=== PATIENT | female | born 1990 | race Caucasian/White ===

== ENCOUNTER 2021-08-19 17:58 | Emergency (ER) | payer BC, SELFPAY ==
[2021-08-19 18:15] VITALS: BP 148/87; PULSE 92; RESP 16; TEMP 36.8; O2SAT 100
--- NOTE | 2021-08-19 18:53 | ED.GENADULT ---
HPI - General Adult General Chief complaint: Skin/Abscess/Foreign Body Stated complaint: lac on left forearm/glass in right foot Source: patient Mode of arrival: ambulatory Limitations: no limitations History of Present Illness HPI narrative: Patient presents for evaluation of laceration to left forearm and puncture wound to right foot. She was attempting to close a door in her partner's face this morning around 0200. In the process of doing so her left arm went through the glass on the door. She was intoxicated at the time. And stepped on glass on the floor with her right foot. She sustained a puncture wound to the plantar aspect of the ball of the right foot. She feels like there is a piece of glass underneath her skin. She attempted to remove it with tweezers unsuccessfully. She states bleeding is controlled to left forearm. While she was intoxicated, her partner who is here in company, remembers the event. No other injuries were sustained. She denies pain in left forearm unless she touches the laceration site. She does have some sharp pain in right foot while ambulating. She is not diabetic. Last tetanus was approximately 1 year ago. No additional complaints or concerns. Related Data Home Medications Medication Instructions Recorded Confirmed No Home Medications 08/19/21 08/19/21 Allergies Allergy/AdvReac Type Severity Reaction Status Date / Time No Known Allergies Allergy Verified 08/19/21 18:43 Review of Systems Review of Systems: CONSTITUTIONAL: Denies fever, chills, or sweats. EYES: Denies visual changes, redness, or discharge. ENT: Denies rhinorrhea, congestion, sore throat, or otalgia. CARDIOVASCULAR: Denies chest pain, palpitations, or edema. RESPIRATORY: Denies cough or dyspnea. GASTROINTESTINAL: Denies abdominal pain, nausea, vomiting, or diarrhea. GENITOURINARY: Denies dysuria or hematuria. SKIN: Reports laceration to left forearm. Reports puncture wound to right foot MUSCULOSKELETAL: Denies back pain, joint pain, or myalgia. NEUROLOGIC: Denies headache, numbness, dizziness, or weakness. PSYCHIATRIC: Denies anxiety or depression. [facility] Past Medical History Medical History No pertinent past medical history Surgical History Surgical History No pertinent past surgical history Family History Family History Mother No pertinent past medical history Social History Social History Alcohol intake: current Alcohol use details: social Additional living arrangements comments: Lives with boyfriend Gender identity (if verbalized by the patient): Female Sexual Orientation (if Verbalized by the Patient): Straight or Heterosexual Spiritual care concerns: No Exam Narrative: GENERAL: Well-appearing, well-nourished, and in no acute distress. HEAD: Normocephalic, atraumatic. EYES: PERRLA and EOMI. ENT: Nares clear, no rhinorrhea or epistaxis. Mucous membranes moist. Oropharynx without tonsillar hypertrophy exudate or other lesions. Bilateral TMs pearly lowe nonbulging NECK: Supple. No adenopathy or masses. No carotid bruits or JVD CHEST: Clear to auscultation. No respiratory distress. No wheezes rales or rhonchi HEART: Regular rate and rhythm. No murmur heard. Normal peripheral pulses. ABDOMEN: Soft, nontender, nondistended, normal active bowel sounds. EXTREMITIES: Normal range of motion. There is tenderness noted to area of right foot puncture wound. Small palpable area of induration which could be consistent with foreign body as reported by patient SKIN: 2mm puncture wound to plantar aspect of right foot. No bleeding noted. Approximately 5.5 cm laceration in flap formation to left forearm. There is a small amount of dried sanguinous drainage present
== END 2021-08-19 18:49 | disposition home or self-care (01) ==
PROVIDERS: Emergency Provider Nurse Practitioner
DX: S91.331A Puncture wound without foreign body, right foot, initial encounter (principal); W25.XXXA Contact with sharp glass, initial encounter; S51.812A Laceration without foreign body of left forearm, initial encounter
CPT/HCPCS: 99213; G0463